=== PATIENT | male | born 1995 | race Hispanic/Latino ===

== ENCOUNTER 2025-07-12 23:28 | Emergency (ER) | payer MEDICAID ==
[~2025-07-12] VITALS: Ht 185.4 cm; Wt 95.5 kg
[2025-07-13 02:19] VITALS: BP 181/66
[2025-07-13 08:41] LABS: N. GONORRRHOEAE BY PCR NOT DETECTED (NOT DETECT)
[2025-07-14 15:38] LABS: HEPATITIS A ANTIBODY, IGM Negative (Negative); HEPATITIS C AB CIA INTERP Negative (Negative); HEPATITIS C ANTIBODY CIA INDEX 0.12 IV (())
[2025-07-15 00:27] LABS: HIV 1,2 COMBO ANTIGEN/ANTIBODY Negative (Negative)
[2025-07-16 12:39] LABS: T.PALLIDUM AB,IGG (FTA-ABS) Non Reactive (Non Reactive)
== END 2025-07-13 02:19 | disposition home or self-care (01) ==
LOC: ED 23:28
PROVIDERS: Family Medicine
DX: Z20.2 Contact with and (suspected) exposure to infections with a predominantly sexual mode of transmission (principal)
CPT/HCPCS: 36415; 80074; 86780; 99283